=== PATIENT | male | born 1970 | race African-American/Black ===

== ENCOUNTER 2022-05-15 14:12 | Emergency (ER) | payer SELFPAY ==
[2022-05-15] MEDS: Ketorolac 30 MG/ML SDV IM STA (17:05)
== END 2022-05-15 18:00 | disposition left against medical advice (07) ==
LOC: MW.ED 14:12
DX: R51.9 Headache, unspecified (principal); Z20.822 Contact with and (suspected) exposure to COVID-19
CPT/HCPCS: 87635; 96372; 99284; J1885; 99282; U0002